=== PATIENT | female | born 1955 | race Asian ===

== ENCOUNTER 2023-07-05 18:00 | Inpatient (IN) | payer MEDICARE ==
[~2023-07-05] VITALS: Ht 162.6 cm; Wt 70.1 kg
[2023-07-05 19:10] LABS: BASOPHILS % 0.2 % (0.0-2.0); HEMATOCRIT. 30.8 % (36.0-48.0); HEMOGLOBIN. 9.7 g/dL (12.0-16.0); LYMPHOCYTES % 8.7 % (20.0-50.0); MEAN CORPUSCULAR HEMOGLOBIN 27.5 pg (28.0-32.0); MEAN CORPUSCULAR HGB CONC 31.6 g/dL (31.0-37.0); MEAN PLATELET VOLUME 8.1 fl (7.4-10.4); MONOCYTES % 5.3 % (2.0-8.0); NEUTROPHILS % 83.8 % (40.0-76.0); PLATELET 224 x1000/uL (130-400); RED BLOOD CELL COUNT 3.54 mill/uL (4.2-5.4); RED CELL DISTRIBUTION WIDTH 17.1 % (11.6-14.6); WHITE BLOOD COUNT 11.9 x1000/uL (4.5-11.0)
[2023-07-05 19:19] LABS: INR 1.2; PROTHROMBIN TIME 12.4 sec (9.6-11.0)
[2023-07-05 19:25] LABS: ALANINE AMINOTRANSFERASE 66 IU/L (10-49); ALBUMIN 3.2 g/dL (3.2-4.8); ASPARTATE AMINOTRANSFERASE 42 IU/L (<34); BILIRUBIN TOTAL 0.5 mg/dL (0.1-1.0); CALCIUM 8.3 mg/dL (8.7-10.4); CARBON DIOXIDE 19 mEq/L (21-32); CHLORIDE 113 mEq/L (98-107); CREATINE KINASE 285 IU/L (34-145); GLUCOSE 81 mg/dL (70-105); LACTATE DEHYDROGENASE 285 IU/L (120-246); POTASSIUM 4.3 mEq/L (3.5-5.1); PROTEIN TOTAL 6.3 g/dL (6.0-8.3); SODIUM 140 mEq/L (136-145); TROPONIN I HIGH SENSITIVITY 23 ng/L (3.0-34); UREA NITROGEN BLOOD 41 mg/dL (9-23)
[2023-07-05 19:26] LABS: ETHANOL BLOOD < 10 mg/dL (<10)
[2023-07-05] MEDS ORDERED: DEXTROSE 50% WATER 50ML SYRINGE IV ONE (22:30)
[2023-07-05] MEDS ORDERED: DEXT 5%/0.45% NACL 1000ML 1,000 ML IV ONE (22:30)
[2023-07-06] VITALS (8 sets, daily range): BP systolic 121–149; BP diastolic 52–97; PULSE 65–89; RESP 18–20; TEMP 95.9–98.9; O2SAT 99
[2023-07-06] MEDS ORDERED: DEXTROSE 50% WATER 50ML SYRINGE IV PRN ×2 (04:45→12:00)
[2023-07-06] MEDS ORDERED: IPRATROPIUM/ALBUTEROL 0.5-3(2.5)MG/3ML NEB HHN PRN (04:45)
[2023-07-06] MEDS: INFLUENZA VACCINE IM SCH (09:00)
[2023-07-06] MEDS: PNEUMOCOCCAL VACCINE IM SCH (09:00)
[2023-07-06] MEDS ORDERED: TRAMADOL 50MG TABLET PO PRN (09:30)
[2023-07-06] MEDS ORDERED: DOCUSATE SODIUM 100MG CAPSULE PO PRN (09:30)
[2023-07-06] MEDS ORDERED: ONDANSETRON HCL 4MG/2ML INJ IV PRN (09:30)
[2023-07-06] MEDS ORDERED: GUAIFENESIN 200MG/10ML SUGAR FREE UDC PO PRN (09:30)
[2023-07-06] MEDS ORDERED: ACETAMINOPHEN 325MG TABLET PO PRN (09:30)
[2023-07-06] MEDS ORDERED: NALOXONE HCL 0.4MG/ML VIAL IV PRN (09:45)
[2023-07-06] MEDS: DEXT 5%/0.45% NACL 1000ML 1,000 ML IV SCH (10:00)
[2023-07-06] MEDS: BLOOD SUGAR DIAGNOSTIC STRIP TEST SCH ×3 (11:58→21:21)
[2023-07-07] VITALS: BP 91/67; PULSE 84; RESP 19; TEMP 97.5
[2023-07-07] MEDS: DEXT 5%/0.45% NACL 1000ML 1,000 ML IV SCH (00:05)
[2023-07-07 04:00] VITALS: BP 135/98; PULSE 83; RESP 20; TEMP 97.5
[2023-07-07 06:41] LABS: BASOPHILS % 0.6 % (0.0-2.0); EOSINOPHILS % 5.1 % (0.0-5.0); HEMOGLOBIN. 9.8 g/dL (12.0-16.0); LYMPHOCYTES % 19.4 % (20.0-50.0); MEAN CORPUSCULAR HGB CONC 32.8 g/dL (31.0-37.0); MEAN CORPUSCULAR VOLUME 85.3 fL (81.0-99.0); MEAN PLATELET VOLUME 8.4 fl (7.4-10.4); MONOCYTES % 7.1 % (2.0-8.0); NEUTROPHILS % 67.8 % (40.0-76.0); PLATELET 215 x1000/uL (130-400); RED BLOOD CELL COUNT 3.51 mill/uL (4.2-5.4); RED CELL DISTRIBUTION WIDTH 17.1 % (11.6-14.6); WHITE BLOOD COUNT 6.9 x1000/uL (4.5-11.0)
[2023-07-07 06:58] LABS: ALANINE AMINOTRANSFERASE 52 IU/L (10-49); ALBUMIN 3.3 g/dL (3.2-4.8); ASPARTATE AMINOTRANSFERASE 31 IU/L (<34); BILIRUBIN TOTAL 0.7 mg/dL (0.1-1.0); CALCIUM 8.6 mg/dL (8.7-10.4); CARBON DIOXIDE 17 mEq/L (21-32); CHLORIDE 111 mEq/L (98-107); CHOLESTEROL 103 mg/dL (<200); GLUCOSE 186 mg/dL (70-105); HDL CHOLESTEROL 32 mg/dL (>65); LDL CHOLESTEROL 51 mg/dL (5-100); POTASSIUM 5.2 mEq/L (3.5-5.1); PROTEIN TOTAL 6.5 g/dL (6.0-8.3); SODIUM 138 mEq/L (136-145); TRIGLYCERIDE 94 mg/dL (0-150); UREA NITROGEN BLOOD 33 mg/dL (9-23)
[2023-07-07] MEDS: BLOOD SUGAR DIAGNOSTIC STRIP TEST SCH ×4 (07:11→21:38)
[2023-07-07] MEDS: INFLUENZA VACCINE IM SCH (09:00)
[2023-07-07] MEDS: PNEUMOCOCCAL VACCINE IM SCH (09:00)
[2023-07-07] MEDS ORDERED: SODIUM POLYSTYRENE SULFONATE 15 G/60 ML BOT PO NR (09:15)
[2023-07-07] MEDS: SODIUM BICARBONATE 50 MEQ in SODIUM CHLORIDE 0.45% 1,000 ML IV SCH (10:50)
[2023-07-07 12:00] VITALS: BP 128/77; PULSE 87; RESP 20; TEMP 98.8
[2023-07-07 16:00] VITALS: BP 141/72; PULSE 90; RESP 20; TEMP 97.5
[2023-07-07 20:00] VITALS: BP 109/42; PULSE 82; RESP 18; TEMP 97.6
[2023-07-08] VITALS: BP 131/66; PULSE 85; RESP 17; TEMP 97.9
[2023-07-08 04:00] VITALS: BP 128/69; PULSE 86; RESP 17; TEMP 97.3
[2023-07-08] MEDS: SODIUM BICARBONATE 50 MEQ in SODIUM CHLORIDE 0.45% 1,000 ML IV SCH (04:55)
[2023-07-08] MEDS: BLOOD SUGAR DIAGNOSTIC STRIP TEST SCH (05:53)
[2023-07-08 06:48] LABS: BASOPHILS % 0.4 % (0.0-2.0); EOSINOPHILS % 3.4 % (0.0-5.0); HEMATOCRIT. 29.7 % (36.0-48.0); HEMOGLOBIN. 9.7 g/dL (12.0-16.0); LYMPHOCYTES % 21.3 % (20.0-50.0); MEAN CORPUSCULAR HGB CONC 32.8 g/dL (31.0-37.0); MEAN CORPUSCULAR VOLUME 85.3 fL (81.0-99.0); MEAN PLATELET VOLUME 8.2 fl (7.4-10.4); MONOCYTES % 7.1 % (2.0-8.0); NEUTROPHILS % 67.8 % (40.0-76.0); PLATELET 204 x1000/uL (130-400); RED BLOOD CELL COUNT 3.48 mill/uL (4.2-5.4); RED CELL DISTRIBUTION WIDTH 17.2 % (11.6-14.6); WHITE BLOOD COUNT 7.8 x1000/uL (4.5-11.0)
[2023-07-08 07:23] LABS: ALANINE AMINOTRANSFERASE 44 IU/L (10-49); ALBUMIN 3.6 g/dL (3.2-4.8); ASPARTATE AMINOTRANSFERASE 29 IU/L (<34); CALCIUM 8.7 mg/dL (8.7-10.4); CARBON DIOXIDE 20 mEq/L (21-32); CHLORIDE 108 mEq/L (98-107); CREATININE 0.9 mg/dL (0.6-1.0); GLUCOSE 148 mg/dL (70-105); POTASSIUM 4.9 mEq/L (3.5-5.1); PROTEIN TOTAL 6.7 g/dL (6.0-8.3); SODIUM 140 mEq/L (136-145); UREA NITROGEN BLOOD 30 mg/dL (9-23)
[2023-07-08] MEDS ORDERED: MAGNESIUM OXIDE 400MG TABLET PO SCH (09:00)
[2023-07-08 10:34] VITALS: BP 133/74; PULSE 87; TEMP 97.8; O2SAT 96
== END 2023-07-08 13:30 | disposition home or self-care (01) | DRG 640 ==
LOC: ER 18:00 → 7WST 22:35
PROVIDERS: ADMIT Hospitalist; ATTEND Hospitalist
DX: E16.2 Hypoglycemia, unspecified (principal); G93.41 Metabolic encephalopathy; E44.1 Mild protein-calorie malnutrition; E87.20 Acidosis, unspecified; R74.01 Elevation of levels of liver transaminase levels; Z20.822 Contact with and (suspected) exposure to COVID-19; D63.8 Anemia in other chronic diseases classified elsewhere; Z68.26 Body mass index [BMI] 26.0-26.9, adult
CPT/HCPCS: 36415; 71045; 80053; 80061; 80320; 82550; 82962; 83036; 83605; 83615; 83735; 83880; 84145; 84484; 85025; 87426; 87804; 90686; 90732; 93005; 94640; 97116; 97162; 97165; 97535; 99291; J3490; G0480